=== PATIENT | female | born 1950 | race Caucasian/White ===

== ENCOUNTER 2020-01-20 13:41 | Outpatient (CLI) | payer MEDICARE, SELFPAY ==
--- NOTE | 2020-01-20 13:49 | MM_ITS ---
WS: [id number] BILATERAL SCREENING DIGITAL MAMMOGRAM WITH CAD HISTORY: SCREENING COMPARISON: 03/24/2018 and 03/21/2017 Bilateral CC and MLO views submitted. Computer aided detection analyzed. Breast composition: There are scattered areas of fibroglandular density. No suspicious masses, microc alcifications or architectural distortion. Benign coarse calcification with associated soft tissue ma ss in the medial RIGHT breast. No new or increasing number of calcifications. MM/[place] [id number] IMPRESSION: BI-RADS: 2-Benign FOLLOW UP: 1 Year Follow-up
--- NOTE | 2020-01-20 14:24 | XR_ITS ---
WS: [id number] SCREENING DEXA SCAN [facility] CLINICAL INFORMATION: POST MENOPAUSAL COMPARISON: None. FINDINGS: The L1-L4 bone mineral density measures 1.229 g/cm2. This corresponds to a T score score of 0.4 and Z score of 1.3. Left femoral neck bone mineral density measures 1.028 g/cm2. This corresponds to a T score of 0.2 and Z score of 1.1. Right femoral neck bone mineral density measures 1.031 g/cm2. This corresponds to a T score 0.2of and Z score of 1.1. Mean femoral neck bone mineral density measures 1.029 g/cm2. This corresponds to a T score of 0.2 and Z score of 1.1. XR/XR DEXA axial skeleton* [id number] IMPRESSION: Normal bone mineralization. Patient's FRAX calculated 10 year probability for major osteoporotic fracture i s 8.1 % and osteoporotic hip fracture is 0.7%.
== END 2020-01-20 13:42 | disposition home or self-care (01) ==
LOC: RADSHAW 13:46
PROVIDERS: PCP Family Medicine; Visit Provider Physician Assistant
DX: Z12.31 Encounter for screening mammogram for malignant neoplasm of breast (principal); Z78.0 Asymptomatic menopausal state
CPT/HCPCS: 77067; 77080

== ENCOUNTER 2020-09-28 19:43 | Inpatient (IN) | payer MEDICARE, SELFPAY ==
[2020-09-28 20:04] VITALS: BP 136/81; PULSE 60; RESP 17; TEMP 36.4; O2SAT 96; BMI 28.3
--- NOTE | 2020-09-28 20:28 | ED_ITS ---
HPI - Abdominal Pain General: Chief Complaint: Abdominal Pain Stated Complaint: abdomen pain Time Seen by Provider: 09/28/20 20:02 Source: patient Mode of arrival: ambulatory Limitations: no limitations History of Present Illness: HPI narrative: Patient is a nice 70-year-old female who presents to ED today with complaint of epigastric pain that began earlier today. She states pain has seemed to wax and wane throughout the day but has had several periods of excruciating pain. She describes the pain as burning. There is no radiation to her discomfort. She does not complain of chest pain or shortness of breath. Pain does not seem to be affected by position or eating. She does state there have been periods throughout the day where she has been pain-free. She is not running fevers. She does report feeling a little nauseous but has not had any episodes of vomiting. Bowel and urinary habits have been normal. MD elicited complaint: abdominal pain Onset (ago): hour(s) Pain Consistency: intermittent Location: Epigastric Quality: burning Radiation: none Migration to: no migration Exacerbating factors: nothing Relieving factors: nothing Associated Symptoms: Reports nausea; Denies change in stool character, chills, diarrhea, dysuria, fever(s), hematochezia, melena, syncope and vomiting Review of Systems Const: Denies: fever(s), chills, body aches, fatigue or malaise ENMT: Denies: throat pain or odynophagia Card: Denies: chest pain, palpitations, irregular heart rhythm, edema, swelling of feet/ankles, lightheadedness, syncope, pre-syncope, dyspnea on exertion, orthopnea, leg pain with exertion or acrocyanosis Resp: Denies: dyspnea, productive cough, non-productive cough or chest congestion GI: Reports: abdominal pain and nausea; Denies: vomiting, diarrhea, change in stool character, hematochezia, melena or white/light colored stool : Denies: flank pain or dysuria Musc: Denies: neck pain or back pain Skin/Breast: Denies: rash Neuro: Denies: headache(s), numbness in extremities, weakness in extremities, sensory changes or dizziness PFS ED PFSH: Medical History (Updated 09/28/20 @ 23:23 by Kendall Mcdaniel MD) SBO (small bowel obstruction) Surgical History H/O section H/O right nephrectomy History of appendectomy Physical Exam Const: COMMON NORMALS: no acute distress, patient oriented x3, no limitations and alert GENERAL APPEARANCE: cooperative NUTRITIONAL APPEARANCE: overweight ORIENTATION/CONSCIOUSNESS: Yes awake, Yes oriented to person, Yes oriented to place and Yes oriented to time HENMT: COMMON NORMALS: normocephalic and atraumatic HEAD & SCALP: normocephalic and atraumatic Chest: COMMONS NORMALS: normal inspection of the chest and normal palpation of entire chest wall Resp: COMMON NORMALS: normal respiratory effort and clear to auscultation bilaterally AUSCULTATION: clear to auscultation bilaterally Cardio: COMMON NORMALS: regular rate and regular rhythm RATE: regular rate RHYTHM: regular rhythm GI: COMMON NORMALS: Normal to inspection, nondistended, normoactive bowel sounds present, Soft to palpation, No hepatosplenomegaly present and no masses PALPATION: Yes Soft to palpation, Yes Tenderness to palpation present (GI) and Yes No hepatosplenomegaly present : COMMON NORMALS: Yes no CVA tenderness BLADDER/KIDNEY EXAM: Yes no CVA tenderness Back/Pelvis: COMMON NORMALS: no CVA tenderness, thoracic and lumbar spine normal to inspection, no thoracic nor lumbar tenderness and thoraco-lumbar ROM normal Extremity: GENERAL: Yes normal exam except as noted Neuro: COMMON NORMALS: patient oriented x3 SENSORIUM/ORIENTATION: Yes alert, Yes oriented to person, Yes oriented to place and Yes oriented to time Skin: COMMON NORMALS: no rashes or lesions noted GENERAL SKIN EXAM: no rashes or lesions noted Course Consultations: Consultation #1: Dr. Coburn-will consult on patient, recommends admission to hospitalist Consultation #2: Dr. Mcdaniel-accepts admission, recommends NG tube Vital Signs: Vital signs: Vital Signs Temperature 97.6 F 09/28/20 20:04 Pulse Rate 63 09/28/20 23:10 Respiratory Rate 18 09/28/20 23:10 Blood Pressure 123/70 09/28/20 23:10 Pulse Oximetry 96 09/28/20 23:10 MDM - Abdominal Pain MDM Narrative: Medical decision making narrative: Patient is a nice 70-year-old female here for upper abdominal pains that began today. Cardiac work-up included secondary to age and epigastric pain. EKG without ischemic changes and her troponin was normal. Vital signs are stable. Patient clinically appears non-ill and nontoxic. Her labs are non-concerning. CT scan shows small bowel obstruction most likely secondary to adhesions. Spoke to Dr. Coburn who will consult on patient. Spoke to hospitalist Dr. Mcdaniel who will admit. Lab Data: Labs: Lab Results 09/28/20 09/28/20 09/28/20 Range/Units 20:25 21:10 21:10 WBC 10.0 (4.0-10.0) 10^3/ uL RBC 4.21 (4.1-5.3) 10^6/u L Hgb 13.4 (11.5-15.3) g/dL Hct 40.9 (37.0-47.0) % MCV 97.1 (81-99) fL MCH 31.8 (28.0-34.0) pg MCHC 32.8 (30.0-36.0) g/dL RDW 13.6 (12.1-15.1) % Plt Count 206 (130-400) 10^3/c mm MPV 11.0 H (7.4-10.4) fL Neut % (Auto) 76.5 % Lymph % (Auto) 14.7 % [place] % (Auto) 6.2 % Eos % (Auto) 1.7 % Baso % (Auto) 0.7 % Neut # (Auto) 7.66 (1.8-7.7) 10^3/u L Lymph # (Auto) 1.5 (0.8-4.8) 10^3/u L [place] # (Auto) 0.6 (0.2-0.9) 10^3/u L Eos # (Auto) 0.2 (0.0-0.8) 10^3/u L Baso # (Auto) 0.1 (0.0-0.1) 10^3/u L Nucleated RBC % (a uto) 0 % Nucleated RBCs # 0.0 /100WBC Sodium 141 (136-145) mmol/L Potassium 4.2 (3.5-5.1) mmol/L Chloride 105 (98-107) mmol/L Carbon Dioxide 24 (22-29) mmol/L Anion Gap 16.2 (5-19) BUN 20 (8-23) mg/dL Creatinine 0.6 (0.5-0.9) mg/dL GFR Calculation 98.8 (90-130) mL/min Glucose 93 (65-115) mg/dL Calculated Osmolal ity 294 (285-295) mOsm/k g Lactic Acid (0.5-2.2) mmol/L Calcium 9.6 (8.5-10.5) mg/dL Total Bilirubin 0.7 (0.15-1.2) mg/dL AST 23 (0-32) U/L ALT 19 (0-33) U/L Alkaline Phosphata se 57 (35-105) IU/L Troponin T Baselin e (0-10) ng/L Total Protein 6.1 L (6.6-8.7) g/dL Albumin 4.3 (3.5-5.2) g/dL Globulin 1.8 (1.3-4.6) g/dL Lipase 31 (13-60) U/L Urine Color Yellow (Yellow) Urine Appearance Clear (CLEAR) Urine pH 5 (5-7) Ur Specific Gravit y 1.025 (1.005-1.030) Urine Protein Trace (Negative) Urine Glucose (UA) Norm (Normal) Urine Ketones 2+ H (Negative) Urine Blood Neg (Negative) Urine Nitrate Negative (Negative) Urine Bilirubin Neg (Negative) Urine Urobilinogen 1 H (Negative) mg/dL Ur Leukocyte Na ase Trace H (Negative) Urine RBC 0-4 H (0-2) /hpf Urine WBC 5-10 H (0-5) /hpf Ur Squamous Epith Cells 0-4 H (0-5) /hpf Amorphous Sediment Trace /hpf Urine Bacteria Trace (NONE) /hpf Urine Mucus Trace /hpf 09/28/20 09/28/20 Range/Units 21:10 21:10 WBC (4.0-10.0) 10^3/ uL RBC (4.1-5.3) 10^6/u L Hgb (11.5-15.3) g/dL Hct (37.0-47.0) % MCV (81-99) fL MCH (28.0-34.0) pg MCHC (30.0-36.0) g/dL RDW (12.1-15.1) % Plt Count (130-400) 10^3/c mm MPV (7.4-10.4) fL Neut % (Auto) % Lymph % (Auto) % [place] % (Auto) % Eos % (Auto) % Baso % (Auto) % Neut # (Auto) (1.8-7.7) 10^3/u L Lymph # (Auto) (0.8-4.8) 10^3/u L [place] # (Auto) (0.2-0.9) 10^3/u L Eos # (Auto) (0.0-0.8) 10^3/u L Baso # (Auto) (0.0-0.1) 10^3/u L Nucleated RBC % (a uto) % Nucleated RBCs # /100WBC Sodium (136-145) mmol/L Potassium (3.5-5.1) mmol/L Chloride (98-107) mmol/L Carbon Dioxide (22-29) mmol/L Anion Gap (5-19) BUN (8-23) mg/dL Creatinine (0.5-0.9) mg/dL GFR Calculation (90-130) mL/min Glucose (65-115) mg/dL Calculated Osmolal ity (285-295) mOsm/k g Lactic Acid 0.5 (0.5-2.2) mmol/L Calcium (8.5-10.5) mg/dL Total Bilirubin (0.15-1.2) mg/dL AST (0-32) U/L ALT (0-33) U/L Alkaline Phosphata se (35-105) IU/L Troponin T Baselin e 10 (0-10) ng/L Total Protein (6.6-8.7) g/dL Albumin (3.5-5.2) g/dL Globulin (1.3-4.6) g/dL Lipase (13-60) U/L Urine Color (Yellow) Urine Appearance (CLEAR) Urine pH (5-7) Ur Specific Gravit y (1.005-1.030) Urine Protein (Negative) Urine Glucose (UA) (Normal) Urine Ketones (Negative) Urine Blood (Negative) Urine Nitrate (Negative) Urine Bilirubin (Negative) Urine Urobilinogen (Negative) mg/dL Ur Leukocyte Na ase (Negative) Urine RBC (0-2) /hpf Urine WBC (0-5) /hpf Ur Squamous Epith Cells (0-5) /hpf Amorphous Sediment /hpf Urine Bacteria (NONE) /hpf Urine Mucus /hpf Imaging Data ^: CT Abd/Pel: Radiologist's impression: [facility] [address] [address] [address] Scan Report Signed Patient: Miladys Pickett Unit #: [id number] : 1950 Age/Sex: 70 / F ADM Date: 09/28/20 Loc: ER Room/Bed: Attending Dr: Ordering Provider/Ordering MD: Samira Kay Date of Service: 09/28/20 Procedure(s): CT abdomen pelvis w con* [id number] Accession Number(s): [id number] Report Number: [id number] PROCEDURE INFORMATION: Exam: CT Abdomen And Pelvis With Contrast Exam date and time: 09/28/2020 8:38 PM Age: 70 years old Clinical indication: Abdominal pain; Prior surgery; Surgery type: Appy. Csection. Nephrectomy. ; Patient HX: Epigastric pain. ; Additional info: Upper abdominal pain TECHNIQUE: Imaging protocol: Computed tomography of the abdomen and pelvis with contrast. Radiation optimization: All CT scans at this facility use at least one of these dose optimization techniques: automated exposure control; mA and/or kV adjustment per patient size (includes targeted exams where dose is matched to clinical indication); or iterative reconstruction. Contrast material: OMNI 300; Contrast volume: 75 ml; Contrast route: INTRAVENOUS (IV); COMPARISON: CT abdomen pelvis w con* [id number] 12/04/2016 6:40 PM RADIATION DOSE METRICS: Total DLP (mGy-cm): 1609.16 FINDINGS: Lungs: There are calcified granulomas in the left lower lobe of the lung. Liver: Normal. No mass. Gallbladder and bile ducts: Normal. No calcified stones. No ductal dilation. Pancreas: Normal. No ductal dilation. Spleen: Normal. No splenomegaly. Adrenal glands: Normal. No mass. Kidneys and ureters: There has been a right nephrectomy. No renal calcification or hydronephrosis of the left kidney. There is a subcentimeter cyst in the mid left kidney. Stomach and bowel: There is small bowel dilation with a maximal diameter of 3.1 cm. There is an air-fluid level in small bowel. No volvulus, intussusception or significant hernia. Colonic diverticula are present although there are no CT findings to suggest diverticulitis. Appendix: No evidence of appendicitis. Intraperitoneal space: Unremarkable. No free air. No significant fluid collection. Vasculature: Unremarkable. No abdominal aortic aneurysm. Lymph nodes: Unremarkable. No enlarged lymph nodes. Urinary bladder: Unremarkable as visualized. Reproductive: Unremarkable as visualized. Bones/joints: Degenerative change is identified in the spine. No acute fracture. Soft tissues: Unremarkable. CT/CT abdomen pelvis w con* [id number] IMPRESSION: There is small bowel dilation consistent with obstruction. This is likely secondary to adhesions in this patient with previous surgery. Radiation Dose CTDIVOL = (mGy): DLP = 1609.16 (mGy-cm) Dictated By: Mireille Brand MD Signed By: Mireille Brand MD Signed Date/Time: 09/28/202226 DD/ 24 CXR: Radiologist's impression: [address] [address] XRay Report Signed Patient: Miladys Pickett Unit #: [id number] : 1950 Age/Sex: 70 / F ADM Date: 09/28/20 Loc: ER Room/Bed: Attending Dr: Ordering Provider/Ordering MD: Samira Kay Date of Service: 09/28/20 Procedure(s): XR chest 1V portable [id number] Accession Number(s): [id number] Report Number: [id number] PROCEDURE INFORMATION: Exam: XR Chest Exam date and time: 09/28/2020 8:38 PM Age: 70 years old Clinical indication: Other: Epigastric pain TECHNIQUE: Imaging protocol: XR of the chest. Views: 1 view. COMPARISON: CR Chest 1 [place] [id number] 03/05/2016 9:53 PM FINDINGS: Lungs: Unremarkable. No consolidation. Pleural spaces: Unremarkable. No pleural effusion. No pneumothorax. Heart/Mediastinum: Unremarkable. No cardiomegaly. Bones/joints: Unremarkable. XR/XR chest 1V portable [id number] IMPRESSION: No acute findings. Dictated By: Mireille Brand MD Signed By: Mireille Brand MD Signed Date/Time: 09/28/202219 DD/ EKG Data ^: EKG 1: EKG interpretation date: 09/28/20 EKG interpretation time: 20:33 Interpretation: Sinus bradycardia Rate [address] elevation or depression changes noted Discharge Plan Discharge Patient Disposition: Admitted As Inpatient Clinical Impression: Small bowel obstruction Condition: Stable Coding Level of Care Code ED Quarrying Specialist for Chg Fwd Exam Comprehensive
[2020-09-28 20:38] LABS: Add Urine Culture? No; Add Urine Microscopic? YES; Amorphous Sediment Urine TRACE /hpf; Bacteria Urine TRACE /hpf; Bilirubin Urine Neg (Negative); Blood Urine Neg (Negative); Glucose Urine UA Norm (Normal); Ketones Urine 2+ (Negative); Leukocyte Esterase Urine Trace (Negative); Mucus Urine TRACE /hpf; Nitrate Urine Negative (Negative); Protein Urine Trace (Negative); RBC Urine 0-4 /hpf (0-2); Specific Gravity, Urine 1.025 (1.005-1.030); Squamous Epithelial Cell Urine 0-4 /hpf (0-5); Urine Appearance Clear (CLEAR); Urine Color Yellow (Yellow); Urobilinogen Urine 1 mg/dL (Negative); pH Urine 5 (5-7)
--- NOTE | 2020-09-28 20:38 | CTR_ITS ---
PROCEDURE INFORMATION: Exam: CT Abdomen And Pelvis With Contrast Exam date and time: 09/28/2020 8:38 PM Age: 70 years old Clinical indication: Abdominal pain; Prior surgery; Surgery type: Appy. Csection. Nephrectomy. ; Patient HX: Epigastric pain. ; Additional info: Upper abdominal pain TECHNIQUE: Imaging protocol: Computed tomography of the abdomen and pelvis with contrast. Radiation optimization: All CT scans at this facility use at least one of these dose optimization techniques: automated exposure control; mA and/or kV adjustment per patient size (includes targeted exams where dose is matched to clinical indication); or iterative reconstruction. Contrast material: OMNI 300; Contrast volume: 75 ml; Contrast route: INTRAVENOUS (IV); COMPARISON: CT abdomen pelvis w con* [id number] 12/04/2016 6:40 PM RADIATION DOSE METRICS: Total DLP (mGy-cm): 1609.16 FINDINGS: Lungs: There are calcified granulomas in the left lower lobe of the lung. Liver: Normal. No mass. Gallbladder and bile ducts: Normal. No calcified stones. No ductal dilation. Pancreas: Normal. No ductal dilation. Spleen: Normal. No splenomegaly. Adrenal glands: Normal. No mass. Kidneys and ureters: There has been a right nephrectomy. No renal calcification or hydronephrosis of the left kidney. There is a subcentimeter cyst in the mid left kidney. Stomach and bowel: There is small bowel dilation with a maximal diameter of 3.1 cm. There is an air-fluid level in small bowel. No volvulus, intussusception or significant hernia. Colonic diverticula are present although there are no CT findings to suggest diverticulitis. Appendix: No evidence of appendicitis. Intraperitoneal space: Unremarkable. No free air. No significant fluid collection. Vasculature: Unremarkable. No abdominal aortic aneurysm. Lymph nodes: Unremarkable. No enlarged lymph nodes. Urinary bladder: Unremarkable as visualized. Reproductive: Unremarkable as visualized. Bones/joints: Degenerative change is identified in the spine. No acute fracture. Soft tissues: Unremarkable. CT/CT abdomen pelvis w con* [id number] IMPRESSION: There is small bowel dilation consistent with obstruction. This is likely secondary to adhesions in this patient with previous surgery. Radiation Dose CTDIVOL = (mGy): DLP = 1609.16 (mGy-cm)
--- NOTE | 2020-09-28 20:38 | ECG_ITS ---
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 Measurements Intervals [place] Rate: 55 P: 56 NM: 163 QRS: -5 QRSD: 102 T: 55 QT: 419 QTc: 403 Interpretive Statements SINUS BRADYCARDIA No previous ECG available for comparison Electronically Signed On 09-29-2020 9:53:02 CDT by Ina Capellan M.D. [id number]
--- NOTE | 2020-09-28 20:38 | XRR_ITS ---
PROCEDURE INFORMATION: Exam: XR Chest Exam date and time: 09/28/2020 8:38 PM Age: 70 years old Clinical indication: Other: Epigastric pain TECHNIQUE: Imaging protocol: XR of the chest. Views: 1 view. COMPARISON: CR Chest 1 [place] [id number] 03/05/2016 9:53 PM FINDINGS: Lungs: Unremarkable. No consolidation. Pleural spaces: Unremarkable. No pleural effusion. No pneumothorax. Heart/Mediastinum: Unremarkable. No cardiomegaly. Bones/joints: Unremarkable. XR/XR chest 1V portable [id number] IMPRESSION: No acute findings.
[2020-09-28] MEDS: lidocaine 2% viscous 15 ML, aluminum-mag hydrox-simethicon 30 ML, sucralfate oral liq 1 GM PO (21:16)
[2020-09-28 21:17] LABS: Basophils # 0.1 10^3/uL (0.0-0.1); Basophils % 0.7 %; Eosinophils # 0.2 10^3/uL (0.0-0.8); Eosinophils % 1.7 %; Hematocrit 40.9 % (37.0-47.0); Hemoglobin 13.4 g/dL (11.5-15.3); Lymphocytes # 1.5 10^3/uL (0.8-4.8); Lymphocytes % 14.7 %; Mean Corpuscular HGB Conc 32.8 g/dL (30.0-36.0); Mean Corpuscular Hemoglobin 31.8 pg (28.0-34.0); Mean Corpuscular Volume 97.1 fL (81-99); Monocytes # 0.6 10^3/uL (0.2-0.9); Monocytes % 6.2 %; Neutrophils # 7.66 10^3/uL (1.8-7.7); Neutrophils % 76.5 %; Nucleated Red Blood Cells % 0 %; Platelet Count 206 10^3/cmm (130-400); Red Blood Count 4.21 10^6/uL (4.1-5.3); Red Cell Distribution Width 13.6 % (12.1-15.1)
[2020-09-28 21:22] VITALS: BP 131/74; PULSE 53; RESP 16; O2SAT 95
[2020-09-28 21:36] LABS: Troponin(5th) Baseline 10 ng/L (0-10)
[2020-09-28 21:39] LABS: Alanine Aminotransferase 19 U/L (0-33); Albumin Level 4.3 g/dL (3.5-5.2); Alkaline Phosphatase 57 IU/L (35-105); Blood Urea Nitrogen 20 mg/dL (8-23); Calcium 9.6 mg/dL (8.5-10.5); Carbon Dioxide 24 mmol/L (22-29); Chloride 105 mmol/L (98-107); Globulin 1.8 g/dL (1.3-4.6); Glomerular Filtration Rate 98.8 mL/min (90-130); Glucose 93 mg/dL (65-115); Lipase 31 U/L (13-60); Osmolality Calculated 294 mOsm/kg (285-295); Sodium 141 mmol/L (136-145); Total Bilirubin 0.7 mg/dL (0.15-1.2); Total Protein 6.1 g/dL (6.6-8.7)
[2020-09-28 21:48] LABS: Anion Gap 16.2 (5-19); Aspartate Amino Transferase 23 U/L (0-32); Potassium 4.2 mmol/L (3.5-5.1)
[2020-09-28] MEDS: iohexol 300 mg/mL 100 mL Btl IV (22:04)
[2020-09-28 22:38] VITALS: BP 122/75; PULSE 57; RESP 18; O2SAT 96
[2020-09-28 23:04] LABS: Lactic Sepsis W/Reflex 0.5 mmol/L (0.5-2.2)
[2020-09-28 23:10] VITALS: BP 123/70; PULSE 63; RESP 18; O2SAT 96
--- NOTE | 2020-09-28 23:22 | P.HP_ITS ---
Providers/Chief Complaint Primary Care Provider: Black Tellez MD Chief Complaint: abdomen pain History of Present Illness Miladys Pickett is a 70 year old female who presented today with chief complaint of midepigastric pain. She does carry history of appendectomy, right nephrectomy, 2 C-sections, no medical history, no history of DC or coronary disease, endorsing family history of pancreatic cancer. Her symptoms started today which she is describing as midepigastric pain which was excruciating, nonradiating, associated with nausea. She was constipated for last few days and had 1 bowel movement today. No recent use of antibiotics or episode of emesis, she is denying fever, hematuria, dysuria, recent traveling. She is not vaccinated for COVID-19 and is not looking forward to get vaccine as well. Patient is stating that she required NG tube placement when she went for right nephrectomy but does not know the details. Diagnostic in the ER revealed SBO, troponin unremarkable, hemodynamically stable, no active signs of peritonitis, requested NG tube placement, Dr. Coburn consulted Review of Systems Const: Reports: chills and body aches; Denies: fever(s) Eyes: Denies: change in vision ENMT: Denies: throat pain Card: Denies: chest pain Resp: Denies: dyspnea GI: Reports: abdominal pain, nausea and constipation; Denies: vomiting or diarrhea : Denies: flank pain Musc: Reports: muscle cramps Skin/Breast: Denies: rash Neuro: Denies: headache(s) Psych: Reports: anxiety Endo: Denies: polyuria Bennett/Lymph: Denies: easy bruising All/Imm: Denies: urticaria Medications/Allergies Allergies Allergy/AdvReac Type Severity Reaction Status Date / Time Penicillins Allergy Unknown Verified 09/28/20 20:07 PFSH Acute PFSH: Medical History IBS (irritable bowel syndrome) SBO (small bowel obstruction) Surgical History H/O section H/O right nephrectomy History of appendectomy Family History (Updated 09/29/20 @ 00:14 by Kendall Mcdaniel MD) Brother Cancer Pancreatic cancer Social History (Updated 09/29/20 @ 00:14 by Kendall Mcdaniel MD) Smoking and tobacco status: never smoked Alcohol intake: never Substance/Drug Use: never Housing: House Vitals/I&O/Wt Last Vital Signs Temp 97.6 F 09/28/20 20:04 Pulse 63 09/28/20 23:10 Resp 18 09/28/20 23:10 BP 123/70 09/28/20 23:10 Pulse Ox 96 09/28/20 23:10 Weight last 48 hrs Weight 77.111 kg Physical Exam Narrative: EXAM NARRATIVE: Very pleasant cooperative female who appears stated age Looks euvolemic Not in any active distress No signs of peritonitis abdomen soft no rebound tenderness guarding or rigidity Hyperactive bowel sounds noted S1, S2 sinus rhythm no murmur appreciated EOMI, PERRLA GCS 15 Bilateral breath sound without any adventitious rhonchi or crackles No sign of cellulitis No joint pain Appropriate mood and affect Data : 09/28/20 21:10 09/28/20 21:10 A&P Assessment and plan (1) Small bowel obstruction: Status: Acute Additional A&P Information SBO 3.1 cm maximum diameter dilation of small bowel with air-fluid level, previous history of surgeries, no lymphadenopathy, NG tube placement to low intermittent suction Dr. Coburn consulted N.p.o. Start D5 half-normal saline maintenance rate Analgesics She had 1 bowel movement today, serial abdominal exam and KUB DVT prophylaxis: Lovenox N.p.o. 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
--- NOTE | 2020-09-28 23:59 | PC.NURSE ---
report to Francine JOHNSON
[2020-09-29] VITALS (12 sets, daily range): BP systolic 127–148; BP diastolic 72–84; PULSE 51–92; RESP 16–20; TEMP 36.4–36.9; O2SAT 95–100
[2020-09-29 00:18] LABS: Troponin 5 2HR 9.75 ng/L (0-10)
[2020-09-29 00:22] LABS: Troponin 5 2HR Delta -0.25 ABS# (0-10)
[2020-09-29] MEDS: cetacaine Spray 5 gm Can 1 SPRAY TOPICAL (01:43)
[2020-09-29] MEDS: dextrose 5%-sod chloride 0.45% 1,000 ML 75 ML IV (02:25)
[2020-09-29] MEDS: enoxaparin 40 mg/0.4 mL Syringe SUBCUT (02:25)
--- NOTE | 2020-09-29 07:42 | PC.PHAR ---
pt states she takes no rx medications-pt states she only takes otc medications entered
--- NOTE | 2020-09-29 07:52 | PC.NURSE ---
Received report assumed care. No changes noted from report. NG secured in right nare. Note dark reddess in tube. Alert and oriented.
[2020-09-29] MEDS: pantoprazole 40 mg SDV IVP (09:00)
[2020-09-29 10:11] LABS: Basophils # 0.1 10^3/uL (0.0-0.1); Basophils % 1.1 %; Eosinophils # 0.1 10^3/uL (0.0-0.8); Hematocrit 41.7 % (37.0-47.0); Hemoglobin 13.6 g/dL (11.5-15.3); Lymphocytes % 18.1 %; Mean Corpuscular HGB Conc 32.6 g/dL (30.0-36.0); Mean Corpuscular Hemoglobin 31.9 pg (28.0-34.0); Mean Corpuscular Volume 97.9 fL (81-99); Mean Platelet Volume 10.6 fL (7.4-10.4); Monocytes # 0.4 10^3/uL (0.2-0.9); Monocytes % 7.4 %; Neutrophils # 4.02 10^3/uL (1.8-7.7); Neutrophils % 71.2 %; Nucleated Red Blood Cells % 0 %; Platelet Count 211 10^3/cmm (130-400); Red Blood Count 4.26 10^6/uL (4.1-5.3); Red Cell Distribution Width 13.7 % (12.1-15.1); White Blood Count 5.6 10^3/uL (4.0-10.0)
--- NOTE | 2020-09-29 10:14 | PC.NURSE ---
Suction to wall unit, at low intermitted
[2020-09-29 10:36] LABS: Anion Gap 12.7 (5-19); Blood Urea Nitrogen 16 mg/dL (8-23); Carbon Dioxide 29 mmol/L (22-29); Chloride 102 mmol/L (98-107); Glomerular Filtration Rate 82.7 mL/min (90-130); Glucose 131 mg/dL (65-115); Osmolality Calculated 293 mOsm/kg (285-295); Potassium 3.7 mmol/L (3.5-5.1); Sodium 140 mmol/L (136-145)
--- NOTE | 2020-09-29 12:13 | PM.CONSULT ---
Providers/Reason For Consult Consulting Physician/Specialty*: General Surgery Tone Coburn MD Reason for Consult*: Small bowel obstruction. Attending Physician: John Love MD Primary Care Provider: Black Tellez MD History of Present Illness History of Present Illness Miladys Pickett is a 70 year old female who developed some epigastric discomfort during the day yesterday. She mentions that she has had this occasionally in the past but not bad; yesterday was the worst episode. It continued to worsen and was colicky in nature. She developed some nausea but never vomited. She came to the emergency room and a CAT scan showed changes consistent with a small bowel obstruction. She has since had a nasogastric tube placed. She says she feels much better. The patient says that she used to have regular diarrhea with her history of IBS but she has been more constipated lately. She says she passed a lot of flatus 2 days ago but has not passed a lot of flatus since and has not had any since yesterday. She had a colonoscopy about 5 years ago and says that everything checked out okay. While she does not like having the nasogastric tube and she says she is feeling quite a bit better. Review of Systems General: Reports: 10 or more systems reviewed and unremarkable except in HPI and below Const: Denies: fever(s) GI: Reports: abdominal pain, nausea and constipation; Denies: vomiting Meds/Allergies Home Medications and Allergies Home Medications Medication Instructions Recorded Confirmed Last Taken Type Digestive Pearls 1 cap PO QAM 09/29/20 09/29/20 Unknown History Fish Oil 1 cap PO QAM 09/29/20 09/29/20 Unknown History Vitamin D3 1 cap PO QAM 09/29/20 09/29/20 Unknown History ascorbic acid-vitamin E-biotin 1 tab PO QAM 09/29/20 09/29/20 Unknown History [Hair, Skin, Nails with Biotin] aspirin [Aspir-81] 81 mg PO QAM 09/29/20 09/29/20 Unknown History krill oil 1 cap PO QAM 09/29/20 09/29/20 Unknown History omeprazole magnesium [Prilosec OTC] 20 mg PO DAILY PRN 09/29/20 09/29/20 Unknown History zinc 1 cap PO QAM 09/29/20 09/29/20 Unknown History Allergies Allergy/AdvReac Type Severity Reaction Status Date / Time Penicillins Allergy Unknown Verified 09/29/20 12:46 -- happened as a child Current Medications Current Medications Generic Name Dose Route Start Last Admin Trade Name Renetta PRN Reason Stop Dose Admin Enoxaparin Sodium 40 mg 09/29/20 01:32 09/29/20 02:25 Enoxaparin 40 Mg/0.4 Ml Syringe SUBCUT 40 mg Q24H REILLY Administration Dextrose/Sodium Chloride 1,000 mls @ 75 mls/hr 09/29/20 01:32 09/29/20 02:25 Dextrose 5%-Sod Chloride 0.45% IV 75 mls/hr .[id number] REILLY Administration Pantoprazole Sodium 40 mg 09/29/20 09:00 09/29/20 09:00 Pantoprazole 40 Mg Sdv IVP 40 mg DAILY REILLY Administration PFSH Acute PFSH: Medical History IBS (irritable bowel syndrome) SBO (small bowel obstruction) Surgical History (Updated 09/29/20 @ 12:45 by Tone Coburn MD) H/O section x 2 H/O right breast biopsy H/O right nephrectomy donor nephrectomy History of appendectomy incidental at last Cesarian section History of cataract surgery bilateral History of tonsillectomy Family History (Updated 09/29/20 @ 12:48 by Tone Coburn MD) Brother Cancer Pancreatic cancer Father Cancer Colon cancer Social History (Updated 09/29/20 @ 00:14 by Kendall Mcdaniel MD) Smoking and tobacco status: never smoked Alcohol intake: never Substance/Drug Use: never Housing: House Vitals/I&O/Wt Last Vital Signs Temp 97.6 F 09/28/20 20:04 Pulse 64 09/29/20 10:00 Resp 18 09/29/20 10:00 BP 127/80 09/29/20 10:00 Pulse Ox 98 09/29/20 10:00 09/28/20 09/29/20 09/29/20 22:59 06:59 14:59 Output Total 900 / 900 Balance -900 / -900 Weight last 48 hrs Weight 170 lb Physical Exam Narrative: EXAM NARRATIVE: The patient was encountered in her room in the emergency department where she is still being held due to a lack of beds on the medical/surgical floor. She has a nasogastric tube in place that does not have any material in the canister currently, but she has another canister sitting in the room that has perhaps 800 mL of dark brown fluid in it. The pupils are equal. No carotid bruits are heard. The lungs are clear. The heart is regular. The abdomen is moderately obese but is soft. She does have some bowel sounds that are somewhat hyperactive at times. She has very mild epigastric tenderness on exam but the remainder of the abdomen reveals minimal tenderness. No obvious masses are palpated. The extremities reveal no edema. Neurologically the patient is grossly intact. Data Imaging^: CT Abd/Pel: Radiologist's impression: CT abdomen/pelvis 09/28/2020 IMPRESSION: There is small bowel dilation consistent with obstruction. This is likely secondary to adhesions in this patient with previous surgery. A&P Assessment and plan (1) Small bowel obstruction: CT reviewed. I agree with the assessment of at least a partial small bowel obstruction. The patient is feeling much better following placement of her nasogastric tube. We discussed small bowel obstructions in some detail. I made the patient aware that the majority of people improve with conservative measures, but if she continues to have issues then surgery may have to be contemplated. She voiced understanding. I will continue following the patient for now. Status: Acute Consult Attestations Medical Necessity Statement: See admitting service's notation. Coding Level of Care Code Acute Search And Rescue Officer for [facility] Diagnoses Small bowel obstruction K56.609
--- NOTE | 2020-09-29 12:24 | PM.PN ---
Subjective Subjective: Interval history: Miladys reports she is doing okay. She has not had any vomiting since NG was placed. She has not had a bowel movement yet. She has not passed any gas. She denies any prior history of small bowel obstruction. Medications: Reviewed: Yes Vitals/I&O/Wt Last Vital Signs Temp 97.6 F 09/28/20 20:04 Pulse 64 09/29/20 10:00 Resp 18 09/29/20 10:00 BP 127/80 09/29/20 10:00 Pulse Ox 98 09/29/20 10:00 09/28/20 09/29/20 09/29/20 22:59 06:59 14:59 Output Total 900 / 900 Balance -900 / -900 Weight last 48 hrs Weight 77.111 kg Physical Exam Narrative: EXAM NARRATIVE: General exam no apparent distress HEENT: NG noted Neck is supple no lymphadenopathy or thyromegaly Cardiovascular regular rate and rhythm without murmur Lungs clear no wheezing or crackles Abdomen is soft. Hypoactive bowel sounds. No obvious organomegaly Extremities no cyanosis clubbing or edema Data : 09/29/20 10:04 09/29/20 10:04 A&P Assessment and plan (1) Small bowel obstruction: N.p.o. Continue NG to suction Surgery consultation Hydration Increase activity/ambulation Protonix IV Pain control Check TSH Patient reports history of some constipation. 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
[2020-09-29 13:11] LABS: Thyroid Stimulating Hormone 1.07 uIU/mL (0.27-4.20)
--- NOTE | 2020-09-29 17:38 | XRR_ITS ---
PROCEDURE INFORMATION: Exam: XR Chest Exam date and time: 09/29/2020 5:38 PM Age: 70 years old Clinical indication: Device placement; Ng tube; Additional info: Ng placement confirmation TECHNIQUE: Imaging protocol: XR of the chest. Views: 1 view. COMPARISON: CR (CHEST, ) 09/28/2020 8:37 PM FINDINGS: Tubes, catheters and devices: NG tube and side port in proper placement within the stomach. Lungs: Unremarkable. No consolidation. Pleural spaces: Unremarkable. No pleural effusion. No pneumothorax. Heart/Mediastinum: Unremarkable. No cardiomegaly. Bones/joints: Unremarkable. XR/XR chest 1V portable [id number] IMPRESSION: Proper placement of the NG tube in the stomach.
--- NOTE | 2020-09-29 18:03 | PC.NURSE ---
pt had reported a cough with feeling of NG tube movement. Tab Master Sonar Technician notified and chest xray shows tube movement. Marco Antonio extended tube and repeated xray. Crissy JOHNSON notified on report.
[2020-09-29] MEDS: dextrose 5%-sod chloride 0.45% 1,000 ML 100 ML IV (18:39)
--- NOTE | 2020-09-29 20:06 | PC.NURSE ---
Nurse assisted patient to the bathroom, patient passed small amount of gas but had no BM. Bowel sounds positive x4, NG tube set to low intermittent suction, about 100 mls of brown fluid in cannister. Abdomen soft with no distention, Pt denies any pain at this time.
[2020-09-30] VITALS: BP 128/69; PULSE 64; RESP 18; TEMP 36.8; O2SAT 98
[2020-09-30] MEDS: enoxaparin 40 mg/0.4 mL Syringe SUBCUT (03:04)
[2020-09-30] MEDS: dextrose 5%-sod chloride 0.45% 1,000 ML 100 ML IV ×2 (03:05→10:07)
[2020-09-30 04:00] VITALS: BP 132/72; PULSE 60; RESP 18; TEMP 36.9; O2SAT 95
[2020-09-30 05:25] LABS: Basophils # 0.1 10^3/uL (0.0-0.1); Eosinophils # 0.2 10^3/uL (0.0-0.8); Eosinophils % 2.9 %; Hematocrit 42.8 % (37.0-47.0); Lymphocytes # 1.2 10^3/uL (0.8-4.8); Lymphocytes % 16.5 %; Mean Corpuscular HGB Conc 30.4 g/dL (30.0-36.0); Mean Corpuscular Hemoglobin 32.2 pg (28.0-34.0); Mean Corpuscular Volume 105.9 fL (81-99); Mean Platelet Volume 11.1 fL (7.4-10.4); Monocytes # 0.7 10^3/uL (0.2-0.9); Monocytes % 9.4 %; Neutrophils # 5.07 10^3/uL (1.8-7.7); Neutrophils % 70.1 %; Nucleated Red Blood Cells % 0 %; Platelet Count 195 10^3/cmm (130-400); Red Blood Count 4.04 10^6/uL (4.1-5.3); White Blood Count 7.2 10^3/uL (4.0-10.0)
[2020-09-30 05:47] LABS: Alanine Aminotransferase 13 U/L (0-33); Albumin Level 3.6 g/dL (3.5-5.2); Alkaline Phosphatase 53 IU/L (35-105); Aspartate Amino Transferase 15 U/L (0-32); Blood Urea Nitrogen 9 mg/dL (8-23); Calcium 8.5 mg/dL (8.5-10.5); Carbon Dioxide 26 mmol/L (22-29); Chloride 106 mmol/L (98-107); Globulin 1.9 g/dL (1.3-4.6); Glomerular Filtration Rate 82.7 mL/min (90-130); Glucose 116 mg/dL (65-115); Osmolality Calculated 292 mOsm/kg (285-295); Sodium 141 mmol/L (136-145); Total Protein 5.5 g/dL (6.6-8.7)
[2020-09-30 05:48] LABS: Anion Gap 12.4 (5-19); Potassium 3.4 mmol/L (3.5-5.1)
--- NOTE | 2020-09-30 07:55 | P.PN_ITS ---
Subjective Subjective: Interval history: The patient is feeling much better. She apparently had her nasogastric tube inserted little bit farther yesterday after I talk to her and it did pulse more fluid. She started passing flatus overnight and denies any abdominal pain this morning. Vitals/I&O/Wt Last Vital Signs Temp 98.5 F 09/30/20 04:00 Pulse 60 09/30/20 04:00 Resp 18 09/30/20 04:00 BP 132/72 09/30/20 04:00 Pulse Ox 95 09/30/20 04:00 09/29/20 09/30/20 09/30/20 22:59 06:59 14:59 Intake Total 1000 / 1843.333 843.333 / 1843.333 Output Total 400 / 400 900 / 900 Balance 1000 / 1443.333 443.333 / 1443.333 -900 / -900 Weight last 48 hrs Weight 170 lb Physical Exam Narrative: EXAM NARRATIVE: Bowel sounds are present. The abdomen reveals mi nimal tenderness. Data : 09/30/20 04:30 09/30/20 04:30 A&P Assessment and plan (1) Small bowel obstruction: The patient is passing flatus. I am going to have nursing clamp her NG tube and if she does well by midday with her NG tube clamped, I I think it can be safely removed and an oral diet can be started. Status: Acute Attestations Medical Necessity Statement*: See admitting service's notation. Coding Level of Care Code Acute Insulation Helper for [facility] Diagnoses Small bowel obstruction K56.609
[2020-09-30 08:00] VITALS: BP 132/72; PULSE 60; RESP 18; TEMP 36.9; O2SAT 94
[2020-09-30] MEDS: pantoprazole 40 mg SDV IVP (08:15)
[2020-09-30] MEDS: potassium chloride ER 20 mEq Tablet 40 MEQ PO (10:06)
[2020-09-30 11:05] VITALS: BP 157/72; PULSE 58; RESP 17; TEMP 36.8; O2SAT 97
--- NOTE | 2020-09-30 12:10 | PC.CHAP ---
Pastoral Care Encounter/Spiritual Assessment Type of Contact [] Declined aircraft engine mechanic supervisor visit [] Patient/Family/Request visit [] Outpatient visit [] Follow-up visit [] Physician referral [] Code/Alert [XX] Routine visit [] Staff referral [] Actively dying [] Patient sleeping [] Family support [] [] Out of room [] Palliative care [] [] Receiving care in room [] Pre-surgical visit [] Trauma [] Long length of stay [] ICU visit [] Other: Relational/Emotional Strength [XX] Patient feels connected with others/family/visitors/staff [] Distress [] Loneliness/isolation [] Abandonment Spirituality of Patient [XX] Person of Mindi [XX] Attends Mosque of their [place] [XX] Believes in Prayer [XX] Reads Bible or Rastafarian materials [] There are Spiritual issues to be addressed Cyber Operator Interventions [XX] Prayer [XX] Active listening [XX] Non-anxious presence [XX] Spiritual/emotional support [] Crisis/trauma care [] Spiritual counseling [] Bereavement support [] Provided bereavement packet [XX] Provided Bible/devotional materials [] Provided toy/stuffed animal, coloring book to patient or family member [] Provided Communion [] Anointing/[place] [] Salvation [] Completed spiritual assessment [] Other: Impact on Illness or Injury [] Angry [] Fearful [] Anxious [] Often cries [] Exhaustion [] Unable to work [] Unable to attend hoahaoism [] Unable to walk/stand [] Unable to read [] Unable to drive [] Unable to eat/drink [] Unable to sleep [XX] Unable to be with family [] Patient intubated [] Other: Summary Patient had just been notified that her brother had in a penitentiary of pancreatic cancer. This was not unexpected as he had lost consciousness the previous night and she knew the end was near. Patient stated that her brother was a strong Spiritism and is now in [place] with his and other family members. Patient stated she was more joyful than grievous as her brother no longer suffers. She also stated all necessary arrangements for his had already been pre-arranged. Patient had already notified family members day before that her brother was passing and that she was entering the hospital through ER and would not be with him at the time of his passing. Patient stated she is OK mentally, spiritually and feeling better physically as she is receiving very good care at [facility]. Time spent with patient 25 minutes
--- NOTE | 2020-09-30 14:46 | PM.PN ---
Subjective Subjective: Interval history: I visited with Miladys this morning and this afternoon. She has passed some gas. She has not had a bowel movement. She tolerated clamping of her tube without difficulty. Medications: Reviewed: Yes Vitals/I&O/Wt Last Vital Signs Temp 98.2 F 09/30/20 11:05 Pulse 58 L 09/30/20 11:05 Resp 17 09/30/20 11:05 BP 157/72 09/30/20 11:05 Pulse Ox 97 09/30/20 11:05 09/29/20 09/30/20 09/30/20 22:59 06:59 14:59 Intake Total 1000 / 1000 843.333 / 1843.333 703.333 / 703.333 Output Total 400 / 400 900 / 900 Balance 1000 / 1000 443.333 / 1443.333 -196.667 / -196.667 Weight last 48 hrs Weight 77.111 kg Physical Exam Narrative: EXAM NARRATIVE: General exam no apparent distress HEENT: NG noted Neck is supple no lymphadenopathy or thyromegaly Cardiovascular regular rate and rhythm without murmur Lungs clear no wheezing or crackles Abdomen is soft. Hypoactive bowel sounds. No obvious organomegaly Extremities no cyanosis clubbing or edema Data : 09/30/20 04:30 09/30/20 04:30 A&P Assessment and plan (1) Small bowel obstruction: Appreciate surgical consultation Continue hydration DC NG tube Start clear liquid diet If tolerates discharge tomorrow Increase activity/ambulation Protonix IV Pain control TSH checked and normal Patient reports history of some constipation. Status: Acute Additional A&P Information Hypokalemia, supplement. History of nephrectomy for donation for organ transplant Full code Lovenox for DVT prophylaxis Attestations Medical Necessity Statement*: Needs continued hospitalization for close monitoring secondary to partial small bowel obstruction. Coding Level of Care Code Acute Construction Project Mgr for [facility] Fwd Diagnoses Small bowel obstruction K56.609
[2020-09-30 15:52] VITALS: BP 139/72; PULSE 51; RESP 16; TEMP 36.9; O2SAT 99
[2020-09-30 20:00] VITALS: BP 121/68; PULSE 55; RESP 18; TEMP 36.9; O2SAT 96
--- NOTE | 2020-09-30 20:51 | PC.NURSE ---
IV Pts IV infiltrated and was discontinued. Took a shower. When went to start new IV pt expressing desire to leave it out. Says is going home tomorrow as long as everything is good. Denies any nausea or pain. Is passing gas and is taking po well. Very pleasant
[2020-10-01] VITALS: BP 118/74; PULSE 62; RESP 18; TEMP 36.6; O2SAT 97
[2020-10-01] MEDS: enoxaparin 40 mg/0.4 mL Syringe SUBCUT (01:55)
[2020-10-01 04:00] VITALS: BP 119/70; PULSE 53; RESP 18; TEMP 36.6; O2SAT 96
[2020-10-01] MEDS: hydrocortisone 1% cream 28 gm 1 APPLIC TOPICAL (06:18)
[2020-10-01] MEDS: diphenhydrAMINE 25 mg Capsule PO (06:18)
[2020-10-01 06:28] LABS: Basophils # 0.1 10^3/uL (0.0-0.1); Basophils % 1.2 %; Eosinophils # 0.3 10^3/uL (0.0-0.8); Hematocrit 42.6 % (37.0-47.0); Hemoglobin 13.6 g/dL (11.5-15.3); Lymphocytes # 1.4 10^3/uL (0.8-4.8); Lymphocytes % 26.1 %; Mean Corpuscular HGB Conc 31.9 g/dL (30.0-36.0); Mean Corpuscular Hemoglobin 31.6 pg (28.0-34.0); Mean Corpuscular Volume 99.1 fL (81-99); Mean Platelet Volume 10.8 fL (7.4-10.4); Monocytes # 0.5 10^3/uL (0.2-0.9); Monocytes % 9.3 %; Neutrophils # 2.96 10^3/uL (1.8-7.7); Neutrophils % 57.2 %; Nucleated Red Blood Cells % 0 %; Platelet Count 192 10^3/cmm (130-400); Red Cell Distribution Width 13.5 % (12.1-15.1); White Blood Count 5.2 10^3/uL (4.0-10.0)
[2020-10-01 07:01] LABS: Anion Gap 11.7 (5-19); Blood Urea Nitrogen 7 mg/dL (8-23); Carbon Dioxide 25 mmol/L (22-29); Chloride 107 mmol/L (98-107); Glomerular Filtration Rate 82.7 mL/min (90-130); Glucose 91 mg/dL (65-115); Osmolality Calculated 288 mOsm/kg (285-295); Potassium 3.7 mmol/L (3.5-5.1); Sodium 140 mmol/L (136-145)
[2020-10-01 08:00] VITALS: BP 127/72; PULSE 52; RESP 16; TEMP 36.5; O2SAT 98
--- NOTE | 2020-10-01 10:43 | P.DS_ITS ---
Discharge Providers Date of Admission: 09/29/20 01:32 Date of Discharge: October 01, 2020 Attending Provider at Admission: Kendall Mcdaniel MD Attending Provider at Discharge: Jose Driscoll MD Consults: Surgery: Dr. Coburn Primary Care Provider: Black Tellez MD Diagnoses at Discharge Discharge Diagnosis (1) Small bowel obstruction: Status: Acute Reason for Visit Reason for Visit: abdomen pain Hospital Course Hospital Course Miladys Pickett is a 70 year old female who developed some epigastric discomfort during the day yesterday. She mentions that she has had this occasionally in the past but not bad; yesterday was the worst episode. It continued to worsen and was colicky in nature. She developed some nausea but never vomited.The patient says that she used to have regular diarrhea with her history of IBS but she has been more constipated lately. She says she passed a lot of flatus 2 days ago but has not passed a lot of flatus since and has not had any since yesterday. She had a colonoscopy about 5 years ago and says that everything checked out okay. Patient present to the ER on September 28. CT scan was done which showed changes consistent with small bowel obstruction and a nasogastric tube was placed. Surgery was consulted. Patient was treated conservatively for small bowel obstruction. Once patient had decreased NG tube output, was passing flatus NG tube was removed. Her diet was gradually advanced. 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 She is been discharged in hemodynamically stable condition with advised to f ollow-up with a primary care provider within next 1 week. She is also advised to gradually advance from full liquid to GI soft/brat diet within next 2 to 3 days and eventually to her regular meals. She is also advised to take frequent small meals. She is advised to continue with active mobilization. She is advised to take bowel regimen once a day regularly for now. Patient is advised if she is not able to tolerate p.o. diet, then to come back to ER. Physical Exam Narrative: EXAM NARRATIVE: General: No acute distress, AO x3 HEENT: PERRLA, pupils bilaterally equal and reactive Chest: Normal vesicular breath sounds, no added sounds, equal good air entry bilaterally CVS: S1-S2 regular, no murmurs, no tachycardia, no gallops, no rubs Abdomen: Soft, nontender, no organomegaly, bowel sounds present Neuro: No focal deficits, no facial deformity, AO x3, power 5/5 in all limbs Discharge Data Data Completed and Pending: Completed Studies During Hospitalization Category Date Time Status CT abdomen pelvis w con* [id number] Urge nt Cat Scan 09/28/20 20:38 Completed XR chest 1V nalini ble [id number] Routine Exams 09/29/20 17:38 Completed XR chest 1V nalini ble [id number] Urgent Exams 09/28/20 20:38 Completed Labs from last 24 hours 10/01/20 10/01/20 06:01 06:01 WBC 5.2 RBC 4.30 Hgb 13.6 Hct 42.6 MCV 99.1 H MCH 31.6 MCHC 31.9 RDW 13.5 Plt Count 192 MPV 10.8 H Neut % (Auto) 57.2 Lymph % (Auto) 26.1 Glynn % (Auto) 9.3 Eos % (Auto) 6.0 Baso % (Auto) 1.2 Neut # (Auto) 2.96 Lymph # (Auto) 1.4 Glynn # (Auto) 0.5 Eos # (Auto) 0.3 Baso # (Auto) 0.1 Nucleated RBC % (a uto) 0 Nucleated RBCs # 0.0 Sodium 140 Potassium 3.7 Chloride 107 Carbon Dioxide 25 Anion Gap 11.7 BUN 7 L Creatinine 0.7 GFR Calculation 82.7 L Glucose 91 Calculated Osmolal ity 288 Calcium 9.0 Addt'l Data from Hospital Stay: Laboratory Results WBC 5.2 10^3/uL (4.0- 10.0) 10/01/20 06:01 RBC 4.30 10^6/uL (4.1 -5.3) 10/01/20 06:01 Hgb 13.6 g/dL (11.5-1 5.3) 10/01/20 06:01 Hct 42.6 % (37.0-47.0 ) 10/01/20 06:01 MCV 99.1 fL (81-99) H 10/01/20 06:01 MCH 31.6 pg (28.0-34. 0) 10/01/20 06:01 MCHC 31.9 g/dL (30.0-3 6.0) 10/01/20 06:01 RDW 13.5 % (12.1-15.1 ) 10/01/20 06:01 Plt Count 192 10^3/cmm (130 -400) 10/01/20 06:01 MPV 10.8 fL (7.4-10.4 ) H 10/01/20 06:01 Neut % (Auto) 57.2 % 10/01/20 06:01 Lymph % (Auto) 26.1 % 10/01/20 06:01 Glynn % (Auto) 9.3 % 10/01/20 06:01 Eos % (Auto) 6.0 % 10/01/20 06:01 Baso % (Auto) 1.2 % 10/01/20 06:01 Neut # (Auto) 2.96 10^3/uL (1.8 -7.7) 10/01/20 06:01 Lymph # (Auto) 1.4 10^3/uL (0.8- 4.8) 10/01/20 06:01 Glynn # (Auto) 0.5 10^3/uL (0.2- 0.9) 10/01/20 06:01 Eos # (Auto) 0.3 10^3/uL (0.0- 0.8) 10/01/20 06:01 Baso # (Auto) 0.1 10^3/uL (0.0- 0.1) 10/01/20 06:01 Nucleated RBC % (a uto) 0 % 10/01/20 06:01 Nucleated RBCs # 0.0 /100WBC 10/01/20 06:01 Sodium 140 mmol/L (136-1 45) 10/01/20 06:01 Potassium 3.7 mmol/L (3.5-5 .1) 10/01/20 06:01 Chloride 107 mmol/L (98-10 7) 10/01/20 06:01 Carbon Dioxide 25 mmol/L (22-29) 10/01/20 06:01 Anion Gap 11.7 (5-19) 10/01/20 06:01 BUN 7 mg/dL (8-23) L 10/01/20 06:01 Creatinine 0.7 mg/dL (0.5-0. 9) 10/01/20 06:01 GFR Calculation 82.7 mL/min (90-1 30) L 10/01/20 06:01 Glucose 91 mg/dL (65-115) 10/01/20 06:01 Calculated Osmolal ity 288 mOsm/kg (285- 295) 10/01/20 06:01 Lactic Acid 0.5 mmol/L (0.5-2 .2) 09/28/20 21:10 Calcium 9.0 mg/dL (8.5-10 .5) 10/01/20 06:01 Total Bilirubin 1.0 mg/dL (0.15-1 .2) 09/30/20 04:30 AST 15 U/L (0-32) 09/30/20 04:30 ALT 13 U/L (0-33) 09/30/20 04:30 Alkaline Phosphata se 53 IU/L (35-105) 09/30/20 04:30 Troponin T Baselin e 10 ng/L (0-10) 09/28/20 21:10 Troponin T 120 Min ren 9.75 ng/L (0-10) 09/28/20 23:44 Delta Troponin T -0.25 ABS# (0-10) L 09/28/20 23:44 Total Protein 5.5 g/dL (6.6-8.7 ) L 09/30/20 04:30 Albumin 3.6 g/dL (3.5-5.2 ) 09/30/20 04:30 Globulin 1.9 g/dL (1.3-4.6 ) 09/30/20 04:30 Lipase 31 U/L (13-60) 09/28/20 21:10 TSH 1.07 uIU/mL (0.27 -4.20) 09/29/20 10:04 Urine Color Yellow (Yellow) 09/28/20 20:25 Urine Appearance Clear (CLEAR) 09/28/20 20:25 Urine pH 5 (5-7) 09/28/20 20:25 Ur Specific Gravit y 1.025 (1.005-1.0 30) 09/28/20 20:25 Urine Protein Trace (Negative) 09/28/20 20:25 Urine Glucose (UA) Norm (Normal) 09/28/20 20:25 Urine Ketones 2+ (Negative) H 09/28/20 20:25 Urine Blood Neg (Negative) 09/28/20 20:25 Urine Nitrate Negative (Negati ve) 09/28/20 20:25 Urine Bilirubin Neg (Negative) 09/28/20 20:25 Urine Urobilinogen 1 mg/dL (Negative ) H 09/28/20 20:25 Ur Leukocyte Na ase Trace (Negative) H 09/28/20 20:25 Urine RBC 0-4 /hpf (0-2) H 09/28/20 20:25 Urine WBC 5-10 /hpf (0-5) H 09/28/20 20:25 Ur Squamous Epith Cells 0-4 /hpf (0-5) H 09/28/20 20:25 Amorphous Sediment Trace /hpf 09/28/20 20:25 Urine Bacteria Trace /hpf (NONE) 09/28/20 20:25 Urine Mucus Trace /hpf 09/28/20 20:25 Impressions Abdomen/Pelvis CT 09/28/20 20:38 IMPRESSION: There is small bowel dilation consistent with obstruction. This is likely secondary to adhesions in this patient with previous surgery. Radiation Dose CTDIVOL = (mGy): DLP = 1609.16 (mGy-cm) Chest X-Ray 09/29/20 17:38 IMPRESSION: Proper placement of the NG tube in the stomach. Vitals: Last Vital Signs Temp 97.7 F 10/01/20 08:00 Pulse 52 L 10/01/20 08:00 Resp 16 10/01/20 08:00 BP 127/72 10/01/20 08:00 Pulse Ox 98 10/01/20 08:00 Discharge Plan Discharge Patient Disposition: Home Condition: Stable Prescriptions: New polyethylene glycol 3350 [Miralax] 17 gram/dose powder 17 g PO DAILY PRN (Reason: constipation) Qty: 238 RF: 0 Continued Aspir-81 81 mg Tablet,Delayed Release (Dr/Ec) 81 mg PO QAM RF: 0 Hair, Skin, Nails with Biotin 7.5-7.5-1,250 mg-unit-mcg Tablet,Chewable 1 tab PO QAM RF: 0 Digestive Pearls 1 cap PO QAM RF: 0 Fish Oil 1 cap PO QAM RF: 0 Vitamin D3 1 cap PO QAM RF: 0 krill oil 1 cap PO QAM RF: 0 zinc 1 cap PO QAM RF: 0 Changed Prilosec OTC 20 mg Tablet,Delayed Release (Dr/Ec) 20 mg PO DAILY 30 Days Qty: 30 RF: 0 Discharge Orders: Discharge Order (Routine); Ordered 10/01/20 Ordered By: Jose Driscoll Referrals: Black Tellez MD [Primary Care Provider] - 4-7 days Patient Instructions: Opioid Safety Activity Restrictions/Additional Instructions: Please follow-up with a primary care provider within next 1 week. She is also advised to gradually advance from full liquid to GI soft/brat diet within next 2 to 3 days and eventually to her regular meals. She is also advised to take frequent small meals. She is advised to continue with active mobilization. She is advised to take bowel regimen once a day regularly for now. Patient is advised if she is not able to tolerate p.o. diet, then to come back to ER. Discharge Attestations Time Spent in Discharge Care*: greater than 30 min Specific Discharge Activities: educating patient, discussing with pcp/other providers, discussing with employment evaluator/case manager/social workers/dc planners, documenting/other paperwork and evaluating patient/reviewing data Quality Metrics Clinical Quality Measures During this hospital stay, did patient experience: None Coding Level of Care Code Acute Chg DC note Diagnoses Small bowel obstruction K56.609
[2020-10-01 10:56] VITALS: BP 106/70; PULSE 53; RESP 18; TEMP 36.6; O2SAT 95
[2020-10-01 11:17] VITALS: BP 106/70; PULSE 53; RESP 18; TEMP 36.6; O2SAT 95
--- NOTE | 2020-10-07 09:06 | PC.SOCIAL ---
follow up call made. patient has been gradually increasing her diet. did well until today and is starting to have pain. advised patient to return to liquid/soft diet. patient is taking daily Miralax. Patient made her follow up appointment with Dr. Tellez for 10-14-20 @[id number].
== END 2020-10-01 11:18 | disposition home or self-care (01) | DRG 390 ==
LOC: ER 22:43 → ER IP 09-29 07:14 → MEDSURG 09-29 17:51
PROVIDERS: Emergency Medicine; Internal Medicine; Admitting Provider Internal Medicine; Emergency Provider Physician Assistant; PCP Family Medicine; Visit Provider Student in an Organized Health Care Education/Training Program
DX: K56.600 Partial intestinal obstruction, unspecified as to cause (principal); Z90.5 Acquired absence of kidney; Z80.0 Family history of malignant neoplasm of digestive organs; K58.1 Irritable bowel syndrome with constipation; E87.6 Hypokalemia; Z79.82 Long term (current) use of aspirin
CPT/HCPCS: 36415; 71045; 74177; 80048; 80053; 81001; 83605; 83690; 84443; 84484; 85025; 93005; 96372; 99285; C9113; J1650; J7799; Q9967

== ENCOUNTER 2020-11-17 16:26 | Emergency (ER) | payer OTHER, MEDICARE, SELFPAY ==
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
--- NOTE | 2020-11-17 16:33 | ECG_ITS ---
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 Measurements Intervals [place] Rate: 54 P: 60 MS: 175 QRS: 13 QRSD: 101 T: 55 QT: 415 QTc: 395 Interpretive Statements SINUS BRADYCARDIA Compared to ECG 09/28/2020 20:33:35 No significant changes Electronically Signed On 11-17-2020 20:38:07 CDT by Gregory Charlton M.D. [id number]
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
[2020-11-17 16:44] VITALS: BP 168/78; PULSE 0; PULSE 56; RESP 18; TEMP 36.8; O2SAT 98; BMI 28.3
[2020-11-17 16:57] VITALS: BP 168/78; PULSE 60; RESP 18; O2SAT 98
[2020-11-17] MEDS: iohexol 300 mg/mL 100 mL Btl IV (17:37)
[2020-11-17 18:03] VITALS: RESP 18; O2SAT 95
[2020-11-17] MEDS: ondansetron 2 mg/ML SDV 2 mL 4 MG IVP (18:03)
[2020-11-17] MEDS: morphine 4 mg/mL SDV 1 mL IVP (18:03)
[2020-11-17 19:09] VITALS: BP 151/74; PULSE 57; O2SAT 95
== END 2020-11-17 19:09 | disposition home or self-care (01) ==
PROVIDERS: Emergency Provider Emergency Medicine; PCP Family Medicine
DX: S22.20XA Unspecified fracture of sternum, initial encounter for closed fracture (principal); W22.10XA Striking against or struck by unspecified automobile airbag, initial encounter; Z79.82 Long term (current) use of aspirin; Z90.5 Acquired absence of kidney; V89.2XXA Person injured in unspecified motor-vehicle accident, traffic, initial encounter
CPT/HCPCS: 70450; 71260; 72125; 73562; 73590; 74177; 93005; 96374; 96375; 99284; J2270; J2405; Q9967

== ENCOUNTER → 2020-12-07 09:56 | Outpatient (BNVA) | payer MEDICARE, SELFPAY | PROVIDERS: PCP Family Medicine; Referring Provider Nurse Practitioner Family; Visit Provider Specialist | DX: S82.209A Unspecified fracture of shaft of unspecified tibia, initial encounter for closed fracture (principal); S82.409A Unspecified fracture of shaft of unspecified fibula, initial encounter for closed fracture; X58.XXXA Exposure to other specified factors, initial encounter | CPT/HCPCS: 73590 ==

== ENCOUNTER → 2021-01-17 13:40 | Outpatient (BNVA) | payer MEDICARE, SELFPAY | PROVIDERS: PCP Family Medicine; Visit Provider Nurse Practitioner | DX: Z20.822 Contact with and (suspected) exposure to COVID-19 (principal) | CPT/HCPCS: 87426 ==